=== PATIENT | male | born 1995 | race Two or more races ===

== ENCOUNTER 2018-05-09 18:11 | Emergency (ER) | payer OTHER ==
--- NOTE | 2018-05-09 18:29 | PHYS DOC ---
Past History Past Medical History: URI Past Surgical History: No Surgical History Past Surgical History Unremarkable Smoking: Less than 1pk/day Additional Smoking Information: vape Alcohol Use: None Drug Use: None Adult General Chief Complaint Chief Complaint: SORE THROAT HPI HPI Patient is a 22-year-old male presenting to the ED complaining of fever, sore throat, and cough for the past 3 days. Patient is not aware of any inciting factor and states that this has never happened before. It is afebrile currently. Patient admits to nonproductive cough. He denies any recent travel. Patient states that tea and TheraFlu help. Patient doesn't believe that he has received his flu shot this year yet, but states that all his other vaccinations are up-to-date. Denies known sick contacts. Review of Systems Review of Systems Constitutional: Reports subjective fever and chills [] Eyes: Denies change in visual acuity, redness, or eye pain [] HENT: Reports nasal congestion and sore throat. Respiratory: Reports nonproductive cough; denies shortness of breath [] Cardiovascular: Denies chest pain or palpitations GI: Denies abdominal pain, nausea, vomiting, or diarrhea [] Integument: Denies rash or skin lesions [] Neurologic: Reports headache; denies focal weakness or sensory changes [] Complete systems were reviewed and found to be within normal limits, except as documented in this note. Current Medications Current Medications Current Medications Medications (Trade) Dose Ordered Sig/Hilario Start Time Stop Time Status Last Admin Dose Admin Dexamethasone (Decadron) 10 mg 1X ONCE 05/09/18 18:30 05/09/18 18:31 UNV Physical Exam Physical Exam Constitutional: Well developed, well nourished, no acute distress, non-toxic appearance. [] HENT: Normocephalic, atraumatic, bilateral external ears normal, oropharynx moist with mild erythema, no exudate, nasal turbinates enlarged and irritated Eyes: PERRL, EOMI, conjunctiva normal, no discharge. [] Neck: Normal range of motion, no tenderness, supple, no meningeal signs Cardiovascular: Heart rate regular rhythm, no murmur [] Lungs & Thorax: Bilateral breath sounds clear to auscultation []ses. [] Skin: Warm, dry, no erythema, no rash. [] Neurologic: Alert and oriented X 3, no focal deficits noted. [] Psychologic: Affect normal, judgement normal, mood normal. [] EKG EKG [] Radiology/Procedures Radiology/Procedures [] Course & Med Decision Making Course & Med Decision Making 22 year old patient with URI symptoms. Nontoxic, afebrile, and physical exam appears more likely secondary to viral infection. Single dose of dexamethasone administered and will be discharged home in stable condition. Patient stable for discharge with outpatient follow-up with PCP. Discussed findings and plan with patient and family, who acknowledge understanding and agreement. Dragon Disclaimer Dragon Disclaimer This electronic medical record was generated, in whole or in part, using a voice recognition dictation system. Departure Departure: Impression: Primary Impression: Acute URI Disposition: 01 HOME, SELF-CARE Condition: STABLE Referrals: PCP,LUISA (PCP) Patient Instructions: Upper Respiratory Infection, Adult, [id number] Additional Instructions: Continue [id number] remedies. Use humidifier at night. YANI PÉREZ DO May 09, 2018 18:29
[2018-05-09] MEDS ORDERED: DEXAMETHASONE 4 MG TABLET PO ONE (18:45)
== END 2018-05-09 18:47 | disposition home or self-care (01) ==
LOC: ER 18:11
DX: J06.9 Acute upper respiratory infection, unspecified (principal); F17.200 Nicotine dependence, unspecified, uncomplicated
CPT/HCPCS: 99284; J8540

== ENCOUNTER 2018-05-15 17:56 | Emergency (ER) | payer OTHER ==
[~2018-05-15] VITALS: Ht 177.8 cm; Wt 78.9 kg
[2018-05-15] MEDS ORDERED: HYDR-971 PO (18:36)
[2018-05-15] MEDS ORDERED: CYCL5TAB PO (18:36)
[2018-05-15] MEDS ORDERED: IBUP800T19 PO (18:36)
--- NOTE | 2018-05-15 18:40 | PHYS DOC ---
Adult General Chief Complaint Chief Complaint Neck pain HPI HPI 22 years old female presented emergency department with right-sided neck pain after lifting weight at the gym no neck stiffness no restriction of movement.\ No fever no chills no headache Review of Systems Review of Systems Constitutional: Denies fever or chills [] Eyes: Denies change in visual acuity, redness, or eye pain [] HENT: Denies nasal congestion or sore throat [] Respiratory: Denies cough or shortness of breath [] Cardiovascular: No additional information not addressed in HPI [] GI: Denies abdominal pain, nausea, vomiting, bloody stools or diarrhea [] : Denies dysuria or hematuria [] Musculoskeletal: Denies back pain or joint pain [] Integument: Denies rash or skin lesions [] Neurologic: Denies headache, focal weakness or sensory changes [] Endocrine: Denies polyuria or polydipsia [] All other systems were reviewed and found to be within normal limits, except as documented in this note. Current Medications Current Medications Current Medications Medications (Trade) Dose Ordered Sig/Hilario Start Time Stop Time Status Last Admin Dose Admin Cyclobenzaprine HCl (Flexeril) 10 mg 1X ONCE 05/15/18 18:30 11 18:31 DC Ketorolac Tromethamine (Toradol Im) 60 mg 1X ONCE 05/15/18 18:30 05/15/18 18:31 DC Allergies Allergies Allergies Coded Allergies Type Severity Reaction Last Updated Verified No Known Drug Allergies 05/09/18 No Physical Exam Physical Exam Constitutional: Well developed, well nourished, no acute distress, non-toxic appearance. [] HENT: Normocephalic, atraumatic, bilateral external ears normal, oropharynx moist, no oral exudates, nose normal. [] Eyes: PERRLA, EOMI, conjunctiva normal, no discharge. [] Neck: Normal range of motion,ight side tenderness, supple, no stridor. [] Cardiovascular:Heart rate regular rhythm, no murmur [] Lungs & Thorax: Bilateral breath sounds clear to auscultation [] Abdomen: Bowel sounds normal, soft, no tenderness, no masses, no pulsatile masses. [] Skin: Warm, dry, no erythema, no rash. [] Back: No tenderness, no CVA tenderness. [] Extremities: No tenderness, no cyanosis, no clubbing, ROM intact, no edema. [] Neurologic: Alert and oriented X 3, normal motor function, normal sensory function, no focal deficits noted. [] Psychologic: Affect normal, judgement normal, mood normal. [] Current Patient Data Vital Signs Vital Signs Date Time Temp Pulse Resp B/P (MAP) Pulse Ox O2 Delivery O2 Flow Rate FiO2 05/15/18 18:05 98.4 82 16 97 Room Air EKG EKG [] Radiology/Procedures Radiology/Procedures [] Course & Med Decision Making Course & Med Decision Making Pertinent Labs and Imaging studies reviewed. (See chart for details) [] Final Impression Final Impression [] Problems: (1) Neck muscle spasm Dragon Disclaimer Dragon Disclaimer This electronic medical record was generated, in whole or in part, using a voice recognition dictation system. BRAULIO UNGER MD May 15, 2018 18:40
[2018-05-15] MEDS: CYCLOBENZAPRINE 10 MG TABLET. PO ONE (18:41)
[2018-05-15] MEDS: KETOROLAC 60 MG/2 ML VIAL. IM ONE (18:44)
[2018-05-15 18:52] VITALS: BP 148/73
== END 2018-05-15 18:54 | disposition home or self-care (01) ==
LOC: ER 17:56
DX: M62.838 Other muscle spasm (principal); M54.2 Cervicalgia; G89.11 Acute pain due to trauma; X50.9XXA Other and unspecified overexertion or strenuous movements or postures, initial encounter; Y93.89 Activity, other specified; Y92.89 Other specified places as the place of occurrence of the external cause; Y99.8 Other external cause status
CPT/HCPCS: 96372; 99283; J1885

== ENCOUNTER 2018-06-09 10:27 | Emergency (ER) | payer OTHER ==
[~2018-06-09] VITALS: Ht 177.8 cm; Wt 80.3 kg
[~2018-06-09 10:27] MED LIST: CYCL5TAB PO; HYDR-3165 PO; IBUP800T19 PO
--- NOTE | 2018-06-09 10:55 | PHYS DOC ---
Past History Past Medical History: No Pertinent History, URI Past Surgical History: No Surgical History Smoking: Less than 1pk/day Alcohol Use: None Drug Use: None Adult General Chief Complaint Chief Complaint: BACK PAIN - NO INJURY HPI HPI 22-year-old male presents with upper lumbar back pain. The patient was working out 2 days ago when he lifted 125 pound dumbbell from the floor onto the rack. He bent over at the waist. He started to have some pain afterwards. The last 2 days the pain has increased significantly. He states that he is walking with a limp due to the pain and he feels like his muscles are tight. He denies any symptoms going down his legs. He denies any numbness or pain in the perineum. He denies any other source of trauma. His only other back history as a broken tailbone the past. Denies fever or chills. Review of Systems Review of Systems Constitutional: Denies fever or chills [] Eyes: Denies change in visual acuity, redness, or eye pain [] HENT: Denies nasal congestion or sore throat [] Respiratory: Denies cough or shortness of breath [] Cardiovascular: No additional information not addressed in HPI [] GI: Denies abdominal pain, nausea, vomiting, bloody stools or diarrhea [] : Denies dysuria or hematuria [] Musculoskeletal: lumbar back pain [] Integument: Denies rash or skin lesions [] Neurologic: Denies headache, focal weakness or sensory changes [] Endocrine: Denies polyuria or polydipsia [] All other systems were reviewed and found to be within normal limits, except as documented in this note. Allergies Allergies Allergies Coded Allergies Type Severity Reaction Last Updated Verified No Known Drug Allergies 05/09/18 No Physical Exam Physical Exam Constitutional: Well developed, well nourished, no acute distress, non-toxic appearance. [] HENT: Normocephalic, atraumatic, bilateral external ears normal, oropharynx moist, no oral exudates, nose normal. [] Eyes: PERRLA, EOMI, conjunctiva normal, no discharge. [] Neck: Normal range of motion, no tenderness, supple, no stridor. [] Cardiovascular:Heart rate regular rhythm, no murmur [] Lungs & Thorax: Bilateral breath sounds clear to auscultation [] Abdomen: Bowel sounds normal, soft, no tenderness, no masses, no pulsatile masses. [] Skin: Warm, dry, no erythema, no rash. [] Back: Paraspinal muscle tenderness L1-L3, worse on the right. Point tenderness over the disc of L2-3.[] Extremities: No tenderness, no cyanosis, no clubbing, ROM intact, no edema. [] Neurologic: Alert and oriented X 3, normal motor function, normal sensory function, no focal deficits noted. [] Psychologic: Affect normal, judgement normal, mood normal. [] Current Patient Data Vital Signs Vital Signs Date Time Temp Pulse Resp B/P (MAP) Pulse Ox O2 Delivery O2 Flow Rate FiO2 06/09/18 10:30 98.1 88 16 100 Room Air EKG EKG [] Radiology/Procedures Radiology/Procedures [] Impressions: Examination: 2 views of the lumbar spine HISTORY: History of low back pain while lifting weights, twisted back COMPARISON: None available Findings/ impression: No evidence of listhesis. The facets are well aligned. The L5 vertebral body appears slightly smaller compared to L4 probably developmental or less likely minimal compression change. Electronically signed by: Tre Saenz MD (06/09/2018 11:26 AM) [facility] DICTATED AND SIGNED BY: TRE SAENZ MD DATE: 06/09/181121 CC: RAFAEL OLSON DO; STEFFANIE BARKER ~ Course & Med Decision Making Course & Med Decision Making Pertinent Labs and Imaging studies reviewed. (See chart for details) The L5 for debridement body is smaller than L4 which could be congenital or minimal compression fracture. See official read for details. I will treat the patient with 10 Wil[place] 5/325, 50 mg of steroids for 3 days and Flexeril 10 mg 3 times a day. He is stable for discharge at this time. [] Dragon Disclaimer Dragon Disclaimer This electronic medical record was generated, in whole or in part, using a voice recognition dictation system. Departure Departure: Referrals: STEFFANIE BARKER (PCP) RAFAEL OLSON DO Jun 09, 2018 10:55
[2018-06-09] MEDS ORDERED: HYDROcodone/APAP 5/325MG 1 TAB TABLET ONE (11:26)
--- NOTE | 2018-06-09 11:29 | RAD ---
Examination: 2 views of the lumbar spine HISTORY: History of low back pain while lifting weights, twisted back COMPARISON: None available Findings/ impression: No evidence of listhesis. The facets are well aligned. The L5 vertebral body appears slightly smaller compared to L4 probably developmental or less likely minimal compression change. Electronically signed by: Tre Saenz MD (06/09/2018 11:26 AM) [facility]
[2018-06-09 11:30] VITALS: BP 142/55
[2018-06-09] MEDS ORDERED: CYCL-331 PO (11:39)
[2018-06-09] MEDS ORDERED: PRED-220 PO (11:39)
[2018-06-09] MEDS ORDERED: HYDR-3165 PO (11:39)
[2018-06-09] MEDS ORDERED: CYCLOBENZAPRINE 10 MG TABLET. PO ONE (11:45)
[2018-06-09] MEDS ORDERED: predniSONE 10 MG TABLET PO ONE (11:45)
[2018-06-09] MEDS ORDERED: HYDROcodone/APAP 5/325MG 1 TAB TABLET PO ONE (11:45)
== END 2018-06-09 11:45 | disposition home or self-care (01) ==
LOC: ER 10:27
DX: M54.5 Low back pain (principal); F17.200 Nicotine dependence, unspecified, uncomplicated; X50.0XXA Overexertion from strenuous movement or load, initial encounter; Y93.89 Activity, other specified; Y92.89 Other specified places as the place of occurrence of the external cause; Y99.8 Other external cause status
CPT/HCPCS: 72100; 99284; J7512

== ENCOUNTER 2018-12-14 13:20 | Emergency (ER) | payer SELFPAY ==
[~2018-12-14] VITALS: Ht 175.3 cm; Wt 80.3 kg
[~2018-12-14 13:20] MED LIST changes: +CYCL-331 PO; +PRED-220 PO
[2018-12-14 13:25] VITALS: BP 131/77
[2018-12-14] MEDS ORDERED: MELO7.5T29 PO (13:47)
[2018-12-14] MEDS ORDERED: AMOX500T PO (13:47)
[2018-12-14] MEDS ORDERED: HYDR-3165 PO (13:47)
--- NOTE | 2018-12-14 13:48 | PHYS DOC ---
Past History Past Medical History: No Pertinent History, URI Past Surgical History: No Surgical History Smoking: Less than 1pk/day Alcohol Use: None Drug Use: None Adult General Chief Complaint Chief Complaint: DENTAL PROBLEM HPI HPI Patient is a 22-year-old male presents with left upper dental pain. He was e ating pizza last night when his tooth broke. Reports increased pain with cold as well as air passing across the tooth. Denies any fever. Denies any drainage. No significant relief with acetaminophen. Reports that the pain is moderate to severe. No radiation of the discomfort.[] Review of Systems Review of Systems Constitutional: Denies fever or chills [] Eyes: Denies change in visual acuity, redness, or eye pain [] HENT: Denies nasal congestion or sore throat [] Respiratory: Denies cough or shortness of breath [] Cardiovascular: No chest pain or palpitations[] GI: Denies abdominal pain, nausea, vomiting, bloody stools or diarrhea [] : Denies dysuria or hematuria [] Musculoskeletal: Denies back pain or joint pain [] Integument: Denies rash or skin lesions [] Neurologic: Denies headache, focal weakness or sensory changes [] Endocrine: Denies polyuria or polydipsia [] All other systems were reviewed and found to be within normal limits, except as documented in this note. Allergies Allergies Allergies Coded Allergies Type Severity Reaction Last Updated Verified No Known Drug Allergies 05/09/18 No Physical Exam Physical Exam Constitutional: Well developed, well nourished, no acute distress, non-toxic appearance. [] HENT: Normocephalic, atraumatic, bilateral external ears normal, oropharynx moist, no oral exudates, nose normal. Tooth #14 is crack towards the posterior aspect. No abscess, no drainage appreciated[] Eyes: PERRLA, EOMI, conjunctiva normal, no discharge. [] Neck: Normal range of motion, no tenderness, supple, no stridor. No cervical lymphadenopathy [] Cardiovascular:Heart rate regular rhythm, no murmur [] Lungs & Thorax: Bilateral breath sounds clear to auscultation [] Abdomen: Not examined. [] Skin: Warm, dry, no erythema, no rash. [] Back: No tenderness, no CVA tenderness. [] Extremities: No tenderness, no cyanosis, no clubbing, ROM intact, no edema. [] Neurologic: Alert and oriented X 3, normal motor function, normal sensory function, no focal deficits noted. [] Psychologic: Affect normal, judgement normal, mood normal. [] Current Patient Data Vital Signs Vital Signs Date Time Temp Pulse Resp B/P (MAP) Pulse Ox O2 Delivery O2 Flow Rate FiO2 12/14/18 13:25 99.3 76 20 96 Room Air EKG EKG [] Radiology/Procedures Radiology/Procedures [] Course & Med Decision Making Course & Med Decision Making Pertinent Labs and Imaging studies reviewed. (See chart for details) Medical decision making: Patient has a broken tooth. No evidence of an active infection at this time. We will cover him with pain medicine as well as prophylactic antibiotics pending dental follow-up. Discussed this plan with the patient who voiced understanding. All questions were answered. He was discharged in improved condition..[] Dragon Disclaimer Dragon Disclaimer This electronic medical record was generated, in whole or in part, using a voice recognition dictation system. Departure Departure: Impression: Primary Impression: Fractured tooth Disposition: HOME, SELF-CARE Condition: IMPROVED Referrals: STEFFANIE BARKER (PCP) Follow-up in 2 days Patient Instructions: Dental Fracture Additional Instructions: Follow-up with your regular doctor or dentist in 2 days. Use the medication as prescribed. Return to the ER if worsening pain, fever of more than 101, or any other concerns. Scripts Amoxicillin (AMOXICILLIN) 500 Mg Tablet 1 TAB PO TID for dental fracture, #30 TAB Prov: JAE SARAVIA DO 12/14/18 Hydrocodone Bit/Acetaminophen (NORCO 5-325 TABLET) 1 Each Tablet 1-2 TAB PO Q4-6HRS for severe pain, #20 TAB Prov: JAE SARAVIA DO 12/14/18 Meloxicam (MELOXICAM) 7.5 Mg Tablet 7.5 MG PO DAILY for PAIN, #20 TAB Prov: JAE SARAVIA DO 12/14/18 Problem Qualifiers Primary Impression: Fractured tooth Encounter type: initial encounter Fracture type: closed Qualified Codes: S02.5XXA - Fracture of tooth (traumatic), initial encounter for closed fracture JAE SARAVIA DO Dec 14, 2018 13:48
== END 2018-12-14 13:52 | disposition home or self-care (01) ==
LOC: ER 13:20
DX: S02.5XXA Fracture of tooth (traumatic), initial encounter for closed fracture (principal); F17.200 Nicotine dependence, unspecified, uncomplicated; X58.XXXA Exposure to other specified factors, initial encounter; Y93.89 Activity, other specified; Y92.89 Other specified places as the place of occurrence of the external cause; Y99.8 Other external cause status
CPT/HCPCS: 99283